=== PATIENT | female | born 1995 | race Caucasian/White ===

== ENCOUNTER → 2019-02-05 | Day surgery (SDC) | payer OTHER ==
[~2019-02-05] MED LIST: IV RINGERS,LACTATED 1000ML 1,000 ML IV SCH; LIDOCAINE 2% PF 5 ML VIAL. ONE; PROPOFOL 40 ML IV ONE
[2019-02-05 15:10] VITALS: BP 117/72
--- NOTE | 2019-02-09 16:06 | PATHOLOGY ---
[facility] Accession Number: [id number] . 01 Material submitted: . PART A: duodenum - DUODENAL BIOPSY PART B: colon - RANDOM COLON BIOPSIES . 01 Clinical history: . Bloating, abdominal pain, reflux, diarrhea . 02 Diagnosis: A. Duodenal biopsies: - No significant pathologic abnormalities. . B. Random colon biopsies: - No significant pathologic abnormalities. ([facility] 02/09/2019) P/02/09/2019 . 02 Comment: Sections of the duodenal biopsy reveal segments of duodenal and small intestine mucosa. Where best oriented, the mucosal villi show no sprue-like changes or significant inflammatory changes. . Sections of the random colon biopsy reveal multiple segments of colonic mucosa containing several focally hyperplastic mucosal-associated lymphoid aggregates. There is no evidence of a chronic destructive colitis, lymphocytic colitis, or collagenous colitis. ([facility] 02/09/2019) . 02 Electronically signed: . Micheal Diehl MD, Pathologist NPI- [id number] . 01 Gross description: . A. The specimen is received in formalin, labeled "Pellumbi, Brixhilda", are few irregular fragments of guillory soft tissue measuring 0.5 x 0.5 x 0.2 cm in aggregate. Entirely submitted in A1. . B. The specimen is received in formalin, labeled "Pellumbi, Brixhilda, random colon biopsies", are several fragments of guillory soft tissue measuring 0.7 x 0.7 x 0.1 cm in greatest dimension. Entirely submitted in B1. ([facility]; 02/06/2019) SHS/SHS . 02 Pathologist provided ICD-10: R14.0, R10.9, K21.9, R19.7 . 02 CPT . 920266, [id number] Specimen Comment: A courtesy copy of this report has been sent to Specimen Comment: [phone], . Specimen Comment: Report sent to / DR CARABALLO Performed at: 01 [facility] [address], [place] [id number] MD David Antoine MD Phone: [phone] Performed at: 02 [facility] [address], [place] [id number] MD Micheal Diehl MD Phone: [phone]
== END ==
LOC: EDBD 12:49 → SURG 12:49
PROVIDERS: ATTEND Internal Medicine Gastroenterology
DX: K64.0 First degree hemorrhoids (principal); K63.89 Other specified diseases of intestine; K31.89 Other diseases of stomach and duodenum; Z72.89 Other problems related to lifestyle; F15.90 Other stimulant use, unspecified, uncomplicated
CPT/HCPCS: 43239; 45380; 81025; 88305; J2001; J2704